=== PATIENT | male | born 1990 | race Caucasian/White ===

== ENCOUNTER 2022-02-02 12:36 | Emergency (ER) | payer MEDICAID, SELFPAY ==
[2022-02-02 12:46] VITALS: BP 133/85; PULSE 68; RESP 16; TEMP 36.5; O2SAT 97; BMI 29.6
--- NOTE | 2022-02-02 13:02 | ED.GENADULT ---
HPI - General Adult General Date Seen: 02/02/22 Chief complaint: Nausea/Vomiting Stated complaint: Vomiting Time Seen by Provider: 02/02/22 12:50 Source: patient History of Present Illness HPI narrative: Patient is a 31-year-old male here with his girlfriend for evaluation of vomiting and diarrhea. He says he became sick on Thursday initially with vomiting, vomited throughout the day yesterday and then today developed diarrhea. He has some sharp, crampy diffuse abdominal pain which is mild. No localized abdominal pain. No bloody stools. He felt chilled last night, no documented fever. He denies any upper respiratory symptoms, sore throat, cough. No urinary symptoms. No ill exposures that he knows of. He has been able to keep some water down, but has not been able to eat anything. He is here today because he continues to have nausea and vomiting which is unusual in terms of duration. Last vomited this morning. He vapes nicotine, denies THC use. Denies regular alcohol use. General health is good, denies any significant medical history, no previous abdominal surgeries. Related Data Home Medications Medication Instructions Recorded Confirmed No Known Home Medications 02/02/22 02/02/22 Allergies Allergy/AdvReac Type Severity Reaction Status Date / Time No Known Drug Allergies Allergy Verified 02/02/22 12:51 Review of Systems Status of ROS: Reports: 10 or more systems reviewed and unremarkable except as noted in History and below [facility] Social History Smoking Status: Current every day smoker Do you use any of these nicotine containing products: Vaping Products Second hand tobacco smoke exposure: No How often do you have a drink containing alcohol: 2-3 times a week AUDIT-C Alcohol total score: 3 Non-prescribed substance use: denies use Exam Narrative: Exam Narrative: Vital signs as noted above. In general, an alert, well-appearing patient. Head: Normocephalic, atraumatic. Eyes: Pupils are equal reactive. Extraocular movements are full. Conjunctivae are normal. ENT: Mucous membranes are moist. Throat is normal. Neck: Supple without lymphadenopathy. Heart: Regular rate and rhythm. No murmur or rub. Lungs: Clear bilaterally. No increased work of breathing, crackles or wheezes. No CVA tenderness. Abdomen: Soft and nontender. No organomegaly. Extremities: Well perfused. No edema. No calf tenderness. Pulses intact. Neurologic: Patient is alert and oriented to person and place. Speech is fluent. Face is symmetric. Moves all extremities equally. Affect: Normal. Skin: Warm and dry. Well perfused. Const: Vital Signs, click to edit/add: Vital Signs - 24 hr 02/02/22 12:46 Temperature 97.7 F Pulse Rate [Right Pulse Oximeter] 68 Respiratory Rate 16 Blood Pressure [Ri ght Upper Arm] 133/85 Pulse Oximetry 97 Oxygen Delivery Me thod Room Air Documenting provider has reviewed patient's vital signs: yes Course Course Hospital Course: Will place an IV, give a L of fluid and some Zofran, check some labs. Discussed that symptoms are likely viral given lack of localizing abdominal pain and lack of significant medical history. However, will await labs to decide if imaging is indicated. At this point I am not overly suspicious of an acute surgical process such as appendicitis, cholecystitis or other significant illness such as pancreatitis, bowel obstruction, colitis, diverticulitis. Labs are overall reassuring[place] [address], but hemoglobin is also fairly elevated at 16.6. I think this may be due to a component of hemoconcentration. He does not have a significant left shift. CRP is normal at less than 0.5. Metabolic panel is unremarkable. BUN and creatinine are normal. Lactate is 1.2. LFTs are unremarkable. Urinalysis shows some ketones but is otherwise negative, and COVID test is negative. He is feeling significantly improved after L of normal saline. He does not feel that he needs more IV fluids, and declines any oral fluids here, he says he feels like he can go home and drink fluids at home, and may even be able to eat something at this point. His abdominal exam remains benign. I think with his labs in abdominal exam that I do not feel compelled to do imaging today. Discussed if he is worsening rather than stable to improving he should return and would consider imaging at that time. Vital Signs Vital signs: Initial Vital Signs Temperature 97.7 F 02/02/22 12:46 Temperature Source Temporal Artery Scan 02/02/22 12:46 Pulse Rate 68 02/02/22 12:46 Respiratory Rate 16 02/02/22 12:46 Blood Pressure 133/85 02/02/22 12:46 Blood Pressure Mean 101 02/02/22 12:46 Blood Pressure Position Sitting 02/02/22 12:46 Pulse Oximetry 97 02/02/22 12:46 Oxygen Delivery Method 02/02/22 12:46 Vital Signs Temperature 97.7 F 02/02/22 12:46 Pulse Rate 68 02/02/22 12:46 Respiratory Rate 16 02/02/22 12:46 Blood Pressure 133/85 02/02/22 12:46 Pulse Oximetry 97 02/02/22 12:46 Oxygen Delivery Method 02/02/22 12:46 Temperature 97.7 F 02/02/22 12:46 Pulse Rate 68 02/02/22 12:46 Respiratory Rate 16 02/02/22 12:46 Blood Pressure 133/85 02/02/22 12:46 Pulse Oximetry 97 02/02/22 12:46 Oxygen Delivery Method 02/02/22 12:46 Medical Decision Making Lab Data Labs: Lab Results 02/02/22 02/02/22 02/02/22 Range/Units 12:05 12:58 13:10 WBC 14.26 H (4.50-11.00) K/uL RBC 5.56 (4.30-5.90) m/uL Hgb 16.6 (13.5-17.5) gm/dL Hct 48.6 (37.0-53.0) % MCV 87 (80-100) fL MCH 30 (26-34) pg MCHC 34 (32-36) gm/dL RDW Coeff of Jose L 12.4 (11.5-15.5) % Plt Count 245 (140-440) K/uL Neut % (Auto) 75.1 H (42.0-72.0) % Lymph % (Auto) 14.0 L (20-44) % Daniels % (Auto) 9.8 (0.0-11.0) % Eos % (Auto) 0.5 (0.0-7.0) % Baso % (Auto) 0.4 (0.0-3.0) % Neut # (Auto) 10.70 H (1.7-7.0) K/uL Lymph # (Auto) 2.00 (0.90-2.90) K/uL Daniels # (Auto) 1.40 H (0.00-0.90) K/UL Eos # (Auto) 0.10 (0.00-0.50) K/uL Baso # (Auto) 0.10 (0.00-0.30) K/uL Abs Immat Gran (auto) 0.03 (0.00-0.30) K/uL Sodium (135-149) mmol/L Potassium (3.6-5.1) mmol/L Chloride (96-114) mmol/L Carbon Dioxide (20-32) mmol/L BUN (5-24) mg/dL Creatinine (0.5-1.5) mg/dL Estimated Creat Clear Estimated GFR ml/min Glucose (60-115) mg/dL Lactate (0.5-1.9) mmol/L Calcium (8.4-10.6) mg/dL Total Bilirubin (0.1-1.5) mg/dL Direct Bilirubin (0.0-0.5) mg/dL AST (12-35) U/L ALT (4-50) U/L Alkaline Phosphatase (40-150) U/L C-Reactive Protein (0.5-1.0) mg/dL Total Protein (6.0-8.3) g/dL Albumin (3.3-5.0) g/dL Lipase (23-300) U/L Urine Color Yellow (Yellow) Urine Appearance Clear (Clear) Urine pH 7.0 (5.0-8.5) Ur Specific [place] 1.020 (1.000-1.030) Urine Protein Negative (Negative) Urine Glucose (UA) Negative (Negative) Urine Ketones Trace A (Negative) Urine Blood Negative (Negative) Urine Nitrite Negative (Negative) Urine Bilirubin Negative (Negative) Urine Urobilinogen 0.2 (0.2-1.0) Ur Leukocyte Esterase Negative (Negative) Urine RBC 0-2 (0-2) Urine WBC 0-2 (0-5) Ur Squamous Epith Cells Not Reportable Urine Bacteria Few A (None) SARS-CoV-2 (PCR) Negative SARS-CoV-2 (Negative) 02/02/22 02/02/22 Range/Units 13:10 13:10 WBC (4.50-11.00) K/uL RBC (4.30-5.90) m/uL Hgb (13.5-17.5) gm/dL Hct (37.0-53.0) % MCV (80-100) fL MCH (26-34) pg MCHC (32-36) gm/dL RDW Coeff of Jose L (11.5-15.5) % Plt Count (140-440) K/uL Neut % (Auto) (42.0-72.0) % Lymph % (Auto) (20-44) % Daniels % (Auto) (0.0-11.0) % Eos % (Auto) (0.0-7.0) % Baso % (Auto) (0.0-3.0) % Neut # (Auto) (1.7-7.0) K/uL Lymph # (Auto) (0.90-2.90) K/uL Daniels # (Auto) (0.00-0.90) K/UL Eos # (Auto) (0.00-0.50) K/uL Baso # (Auto) (0.00-0.30) K/uL Abs Immat Gran (auto) (0.00-0.30) K/uL Sodium 137 (135-149) mmol/L Potassium 4.6 (3.6-5.1) mmol/L Chloride 100 (96-114) mmol/L Carbon Dioxide 28 (20-32) mmol/L BUN 16 (5-24) mg/dL Creatinine 1.0 (0.5-1.5) mg/dL Estimated Creat Clear 105.45 Estimated GFR 104 ml/min Glucose 101 (60-115) mg/dL Lactate 1.2 (0.5-1.9) mmol/L Calcium 9.5 (8.4-10.6) mg/dL Total Bilirubin 0.7 (0.1-1.5) mg/dL Direct Bilirubin 0.0 (0.0-0.5) mg/dL AST 40 H (12-35) U/L ALT 43 (4-50) U/L Alkaline Phosphatase 72 (40-150) U/L C-Reactive Protein < 0.5 L (0.5-1.0) mg/dL Total Protein 7.8 (6.0-8.3) g/dL Albumin 4.9 (3.3-5.0) g/dL Lipase 105 (23-300) U/L Urine Color (Yellow) Urine Appearance (Clear) Urine pH (5.0-8.5) Ur Specific [place] (1.000-1.030) Urine Protein (Negative) Urine Glucose (UA) (Negative) Urine Ketones (Negative) Urine Blood (Negative) Urine Nitrite (Negative) Urine Bilirubin (Negative) Urine Urobilinogen (0.2-1.0) Ur Leukocyte Esterase (Negative) Urine RBC (0-2) Urine WBC (0-5) Ur Squamous Epith Cells Urine Bacteria (None) SARS-CoV-2 (PCR) (Negative) Discharge Plan Discharge Clinical Impression: Gastroenteritis, Dehydration Patient Disposition: Home, Self-Care Condition: Improved Instructions: Gastroenteritis (ED) Additional Instructions: Continue to work on hydration at home, advance diet as able. Zofran if needed for further nausea/vomiting. Return for continued vomiting despite treatment, severe or localized abdominal pain, fever, bloody stools or other worsening. Follow-up with primary care if not improving over the next 1-2 days. Prescriptions: No Action No Known Home Medications Stand Alone Forms: [employer] Info Instructions
[2022-02-02 13:18] LABS: Lactate* 1.2 mmol/L (0.5-1.9)
[2022-02-02 13:20] LABS: Appearance Urine Clear (Clear); Bilirubin Urine Negative (Negative); Blood Urine Negative (Negative); Color Urine Yellow (Yellow); Glucose Urine Negative (Negative); Ketones Urine Trace (Negative); Leukocyte Esterase Urine Negative (Negative); Nitrite Urine Negative (Negative); Protein Urine Negative (Negative); Urobilinogen Urine 0.2 (0.2-1.0)
[2022-02-02 13:21] LABS: Basophils Percent Auto 0.4 % (0.0-3.0); Eosinophils Percent Auto 0.5 % (0.0-7.0); Hematocrit 48.6 % (37.0-53.0); Hemoglobin* 16.6 gm/dL (13.5-17.5); Immature Granulocytes Abs Auto 0.03 K/uL (0.00-0.30); Mean Corpuscular HGB Conc 34 gm/dL (32-36); Mean Corpuscular Hemoglobin 30 pg (26-34); Mean Corpuscular Volume 87 fL (80-100); Monocytes Percent Auto 9.8 % (0.0-11.0); Neutrophils Percent Auto 75.1 % (42.0-72.0); Platelet Count* 245 K/uL (140-440); RDW Coefficient of Variation % 12.4 % (11.5-15.5); Red Blood Count 5.56 m/uL (4.30-5.90); White Blood Count* 14.26 K/uL (4.50-11.00)
[2022-02-02] MEDS: ONDANSETRON 2 MG/ML inj 4 MG IVP (13:21)
[2022-02-02] MEDS: 0.9 % SODIUM CHLORIDE 1000 ml 1,000 ML IV (13:21)
[2022-02-02 13:24] LABS: Slide Review Reflex No
[2022-02-02 13:30] VITALS: BP 126/83; PULSE 61; RESP 14; O2SAT 95
[2022-02-02 13:38] LABS: Bacteria Urine Few; RBC Urine 0-2 (0-2); WBC Urine 0-2 (0-5)
[2022-02-02 13:43] LABS: Chloride* 100 mmol/L (96-114)
[2022-02-02 13:44] LABS: Albumin* 4.9 g/dL (3.3-5.0); Sodium* 137 mmol/L (135-149)
[2022-02-02 13:45] LABS: Potassium* 4.6 mmol/L (3.6-5.1)
[2022-02-02 13:47] LABS: Alkaline Phosphatase* 72 U/L (40-150); Aspartate Amino Transferase* 40 U/L (12-35); Bilirubin Total* 0.7 mg/dL (0.1-1.5); Blood Urea Nitrogen* 16 mg/dL (5-24); Carbon Dioxide* 28 mmol/L (20-32); Est. Creatinine Clearance* 105.45; Estimated Glomerular Filt Rate 104 ml/min; Lipase* 105 U/L (23-300); Total Protein* 7.8 g/dL (6.0-8.3)
[2022-02-02 13:48] LABS: Alanine Aminotransferase* 43 U/L (4-50); Calcium* 9.5 mg/dL (8.4-10.6); Glucose* 101 mg/dL (60-115)
[2022-02-02 13:55] LABS: C Reactive Protein* < 0.5 mg/dL (0.5-1.0)
[2022-02-02 14:00] VITALS: BP 121/84; PULSE 48; RESP 14; O2SAT 97
[2022-02-02 14:15] LABS: SARS PCR* Negative SARS-CoV-2 (Negative)
== END 2022-02-02 14:56 | disposition home or self-care (01) ==
PROVIDERS: Emergency Provider Emergency Medicine
DX: R11.2 Nausea with vomiting, unspecified (principal); E86.0 Dehydration
CPT/HCPCS: 36415; 80048; 80076; 81001; 83605; 83690; 85025; 86140; 87086; 87635; 96374; 99283; 99284; J2405; J7030

== ENCOUNTER 2022-03-03 13:49 | Emergency (ER) | payer OTHER, MEDICAID, SELFPAY ==
[2022-03-03 13:55] VITALS: BP 145/78; PULSE 89; RESP 18; TEMP 36.8; O2SAT 97; BMI 30.4
--- NOTE | 2022-03-03 14:10 | XR_ITS ---
Final Report Patient: DEANDRE ESQUIVLE Facility:?[facility] Patient ID:?[id number] Site Patient ID:?[id number]. Site :?[id number] Study:?XRay Knee Right 3 views-03/03/2022 2:29:17 PM Ordering Physician:Vincent Sainz Final Report: INDICATION: Knee injury from fall from ladder TECHNIQUE: Knee radiograph 3 views right COMPARISON: None FINDINGS: Bone: No acute fractures or aggressive bone lesions are identified. Joint: The medial, lateral, and patellofemoral compartments are unremarkable. No significant knee effusion is seen. Soft tissue: Evaluation is limited by overlying bandage. No radiopaque foreign bodies are seen. IMPRESSION: 1. No acute osseous injuries or abnormalities are noted. Dictated by: Orlin Lopez MD @ 03/03/2022 14:32:03 (Electronic Signature)
--- NOTE | 2022-03-03 14:12 | ED.FALL ---
HPI - Fall General Chief Complaint: Fall/Minor Trauma Stated Complaint: Fell two stories off ladder cut right knee open Time Seen by Provider: 03/03/22 14:02 History of Present Illness HPI Narrative: This 32-year-old male walks into the emergency department reporting a fall from a ladder that occurred just prior to arrival. He states that he was up a couple stories high on a tall ladder when he fell down. He states that he hit the ladder on the way down and landed on his feet. He does not describe any injury except for pain in his right knee. He does have a laceration above the right patella. He does not report any other injury. He did not hit his head or lose consciousness. He is ambulating rather normally except for a mild limp. He does not have any neck pain, back pain, chest pain or abdominal pain. Related Data Previous Rx's Medication Instructions Recorded ketorolac 10 mg tablet 10 mg PO Q8H 5 days #15 tabs 03/03/22 Allergies Allergy/AdvReac Type Severity Reaction Status Date / Time No Known Drug Allergies Allergy Verified 03/03/22 13:59 Review of Systems Status of ROS: Reports: 10 or more systems reviewed and unremarkable except as noted in History and below Narrative: Constitutional: No fevers, no weight gain or loss. Eyes: No discharge. No vision changes. HENT: No congestion, no sore throat, no ear pain. Cardiovascular: No chest pain, no palpitations. Respiratory: No shortness of breath, no wheezes, no cough. Gastrointestinal: No abdominal pain, no vomiting, no diarrhea. Genitourinary: No dysuria, no hematuria. Musculoskeletal: Normal range of motion. Right knee pain with laceration as described above. Skin: No rashes, no pruritis. Neurological: No dizziness, weakness, sensory change, speech change. Endo/Heme/Allergies: No bruising or bleeding. No polydipsia. Pysch: no suicidality, no anxiety, no insomnia. All other systems reviewed and are negative. [facility] Social History Smoking Status: Former smoker Do you use any of these nicotine containing products: Vaping Products Second hand tobacco smoke exposure: No How often do you have a drink containing alcohol: 2-3 times a week How many standard drinks containing alcohol do you have on a typical day: 1 or 2 How often do you have six or more drinks on one occasion: Never AUDIT-C Alcohol total score: 3 Non-prescribed substance use: denies use service: No Exam Narrative: Exam Narrative: Primary Survey: Vital Signs are within normal limits. Airway: Open. Breathing: Easy. Circulation: no obvious bleeding; normal capillary refill. Disability: GCS is 15. Normal pupillary response and motor movements. Secondary Survey: Head: Normocephalic Neck: No midline tenderness. ROM intact. Chest: Non tender. No external signs of trauma. Abdomen: Non tender. No rebound tenderness. Normal bowel sounds. Pelvis/Genitals: No tenderness to A/P and lateral stress. Extremities: Abrasion and laceration above the right knee on the anterior portion of the distal femur. Back: No midline tenderness. Primary and Secondary surveys are completed. The patient's GCS is 15. Const: Vital Signs, click to edit/add: Vital Signs - 24 hr 03/03/22 13:55 Temperature 98.3 F Pulse Rate [Right Pulse Oximeter] 89 Respiratory Rate 18 Blood Pressure [Ri ght Upper Arm] 145/78 H Pulse Oximetry 97 Oxygen Delivery Me thod Room Air Course Vital Signs Vital signs: Initial Vital Signs Temperature 98.3 F 03/03/22 13:55 Temperature Source Temporal Artery Scan 03/03/22 13:55 Pulse Rate 89 03/03/22 13:55 Respiratory Rate 18 03/03/22 13:55 Blood Pressure 145/78 H 03/03/22 13:55 Blood Pressure Mean 100 03/03/22 13:55 Blood Pressure Position Sitting 03/03/22 13:55 Pulse Oximetry 97 03/03/22 13:55 Oxygen Delivery Method 03/03/22 13:55 Vital Signs Temperature 98.3 F 03/03/22 13:55 Pulse Rate 89 03/03/22 13:55 Respiratory Rate 18 03/03/22 13:55 Blood Pressure 145/78 H 03/03/22 13:55 Pulse Oximetry 97 03/03/22 13:55 Oxygen Delivery Method 03/03/22 13:55 Temperature 98.3 F 03/03/22 13:55 Pulse Rate 89 03/03/22 13:55 Respiratory Rate 18 03/03/22 13:55 Blood Pressure 145/78 H 03/03/22 13:55 Pulse Oximetry 97 03/03/22 13:55 Oxygen Delivery Method 03/03/22 13:55 MDM - Fall MDM Narrative Medical decision making narrative: This patient comes in for evaluation of a fall from a significant height. He states that he was up on a ladder a couple stories up when he came off the ladder and hit the ladder on the way down. He landed on his feet. The mechanism of injury is trigger for trauma team activation however his exam is actually quite reassuring. He states that he was able to land on his feet and role out of the fall. He has an abrasion above his right knee and a smaller 1 above the left knee. This is where he hit the ladder. His exam is otherwise normal. I did discuss with him concern about the mechanism of injury given the height from which she fell however his exam is reassuring. Consideration was given toward imaging of his head, spine, chest, and abdomen. However his exam in these areas is completely normal. He is not having any pain or discomfort. He did not injure these areas despite the height from which he fell. An x-ray of the right knee is acquired which returns with no acute findings. He has an abrasion above the right knee that was cleansed. It was evaluated to its base and noted that there was no full-thickness laceration involved. I did repair part of the wound with Dermabond but there was no need to approximate any wound edges. A nonstick bandage was then applied. The patient did receive an intramuscular injection of Toradol. He was uncertain of his tetanus status and an attempt was made to research this. It was found that his tetanus was updated 5 years ago so he is current. The patient is okay to return home. He is ambulatory with a slight limp. He received a prescription for Toradol. ECG Data Attestation: I personally reviewed and interpreted this ECG as follows: Interpretation: Normal sinus rhythm, rate is 59 beats per minute. There are no specific ST or T-wave abnormalities. Discharge Plan Discharge Clinical Impression: Multiple leg contusions, Fall Patient Disposition: Home, Self-Care Condition: Stable Additional Instructions: Take medication as needed and indicated. Increase activity as tolerated. Follow up with MD or return if worsening. Prescriptions: New ketorolac 10 mg tablet 10 mg PO Q8H 5 Days Qty: 15 0RF Follow Up/Referrals: Provider,Not a Local [Primary Care Provider] - Stand Alone Forms: [employer] Info Instructions
[2022-03-03 14:45] VITALS: BP 114/75; PULSE 59; RESP 12; O2SAT 96
--- NOTE | 2022-03-03 14:47 | ED.NURSE ---
dr reza in to see and wound was cleaned with génesis jenkins. this is an abrasion. r knee.
[2022-03-03 15:00] VITALS: BP 111/65; PULSE 57; RESP 14; O2SAT 96
--- NOTE | 2022-03-03 15:09 | ED.NURSE ---
last tetanus 11/11/2016
[2022-03-03] MEDS: KETOROLAC 30 MG/ML inj IM (15:24)
== END 2022-03-03 15:37 | disposition home or self-care (01) ==
PROVIDERS: Emergency Provider Emergency Medicine Emergency Medical Services
DX: S80.02XA Contusion of left knee, initial encounter (principal); S80.01XA Contusion of right knee, initial encounter; W11.XXXA Fall on and from ladder, initial encounter; Y93.H3 Activity, building and construction; Y92.9 Unspecified place or not applicable; Y99.0 Civilian activity done for income or pay
CPT/HCPCS: 73562; 93005; 96372; 99284; 99291; G0390; J1885

== ENCOUNTER 2022-07-18 17:43 | Emergency (ER) | payer MEDICAID, SELFPAY ==
[2022-07-18 17:47] VITALS: BP 131/81; PULSE 84; RESP 16; TEMP 36.9; O2SAT 94; BMI 30.4
--- NOTE | 2022-07-18 17:58 | ED.FEVER ---
HPI - Fever General Time Seen by Provider: 17:58 Date Seen: 07/18/22 Chief Complaint: Fever Stated Complaint: Sore Throat Fever Time Seen by Provider: 07/18/22 17:58 Source: patient and RN notes reviewed Mode of arrival: ambulatory Limitations: no limitations History of Present Illness HPI Narrative: Patient is a very pleasant 32-year-old gentleman previously healthy with history of vaping who comes to the emergency room for evaluation of new fever today. Patient noted the onset of a fever up to 101, headache, sore throat, mild congestion and a slight cough earlier today. Patient notes that he has had an exposure to strep at work. His employer asked him to come in to be evaluated. He has no vomiting but did have some slight nausea earlier today. He did take Excedrin which has helped somewhat with his headache. He denies a history of underlying lung infection, emphysema, asthma. He agrees that he is slightly short of breath. He is able to drink fluids without difficulty. Related Data Previous Rx's Medication Instructions Recorded nirmatrelvir 300 mg (150 mg See Rx Instructions PO .COMPLEX 07/18/22 x2)-ritonavir 100 mg tablet,dose #30 ea pack(EUA) (Paxlovid) Allergies Allergy/AdvReac Type Severity Reaction Status Date / Time No Known Drug Allergies Allergy Verified 03/03/22 13:59 Review of Systems Narrative Patient denies ear pain, visual changes, chest pain, abdominal pain, unusual rash. [facility] Social History Smoking Status: Former smoker Do you use any of these nicotine containing products: Vaping Products Second hand tobacco smoke exposure: No How often do you have a drink containing alcohol: 2-3 times a week How many standard drinks containing alcohol do you have on a typical day: 1 or 2 How often do you have six or more drinks on one occasion: Never AUDIT-C Alcohol total score: 3 Non-prescribed substance use: denies use service: No Exam Narrative Exam Narrative: Patient is alert and oriented. Not in any acute distress. Mentating normally. Eyes are clear without injection or drainage. Head is atraumatic normocephalic Oral cavity with moist mucous membranes. Patient has a somewhat enlarged uvula. However does not appear edematous and I believe this is likely chronic. Oral cavity without exudate or erythema. Neck is supple without lymphadenopathy. Heart with regular rate and rhythm and lungs are clear bilaterally. Abdomen soft. Moving all extremities. Const Vital Signs, click to edit/add: Vital Signs - 24 hr 07/18/22 17:47 Temperature 98.5 F Pulse Rate [Left Pulse Oximeter] 84 Respiratory Rate 16 Blood Pressure [Right Upper Arm] 131/81 Pulse Oximetry 94 Oxygen Delivery Method Room Air Course Course Hospital Course: Patient noted to have onset of fever with mild respiratory symptoms and a sore throat today. Differential diagnosis includes but is not limited to COVID, influenza, RSV, strep, other viral illness. Will obtain CT COVID/influenza/RSV and strep swabs. Vital Signs Vital signs: Initial Vital Signs Temperature 98.5 F 07/18/22 17:47 Temperature Source Temporal Artery Scan 07/18/22 17:47 Pulse Rate 84 07/18/22 17:47 Pulse Rhythm Regular 07/18/22 17:47 Respiratory Rate 16 07/18/22 17:47 Blood Pressure 131/81 07/18/22 17:47 Blood Pressure Mean 97 07/18/22 17:47 Pulse Oximetry 94 07/18/22 17:47 Oxygen Delivery Method Room Air 07/18/22 17:47 Vital Signs Temperature 98.5 F 07/18/22 17:47 Pulse Rate 84 07/18/22 17:47 Respiratory Rate 16 07/18/22 17:47 Blood Pressure 131/81 07/18/22 17:47 Pulse Oximetry 94 07/18/22 17:47 Oxygen Delivery Method Room Air 07/18/22 17:47 Temperature 98.5 F 07/18/22 17:47 Pulse Rate 84 07/18/22 17:47 Respiratory Rate 16 07/18/22 17:47 Blood Pressure 131/81 07/18/22 17:47 Pulse Oximetry 94 07/18/22 17:47 Oxygen Delivery Method Room Air 07/18/22 17:47 MDM - Fever MDM Narrative Medical decision making narrative: 1. COVID-at this time patient has reassuring oxygen levels and exam. He has onset of symptoms today so tomorrow will be day 1 of his illness. I recommended that he be off work up to and including July 23. Thereafter he may return to work but with masking an additional 5 days if he is without fever and his symptoms are improved. Patient has had previous immunizations and has had COVID once before. I did offer Paxlovid giving vaping history and patient would like to do this. He has no history of kidney problems in the past. I do not feel that we need to check a creatinine today. He is not dehydrated. 2. Disposition- home at this time. Patient's is . I have asked her to check with her OB regarding any need for treatment. She has no symptoms at this time but certainly has had significant exposure. Suggest sleeping on side or on stomach to help lung expansion with COVID. Return to the emergency room for worsening symptoms. Medical Records Attestation: I reviewed the patient's medical records. Medical records narrative: I reviewed previous records. Lab Data Attestation: I reviewed the patient's lab results. Lab results narrative: I reviewed labs. Labs: Lab Results 07/18/22 Range/Units 17:30 SARS-CoV-2 (PCR) POSITIVE SARS-CoV-2 A (Negative) Influenza Type A (PCR) Negative PCR FLU A (Negative) Influenza Type B (PCR) Negative PCR FLU B (Negative) RSV (PCR) Negative PCR RSV (Negative) Group A Strep DNA NOT DETECTED (Not Detectd) Discharge Plan Discharge Clinical Impression: COVID Patient Disposition: Home, Self-Care Condition: Unchanged Additional Instructions: Push fluids and stay well hydrated. Alternate ibuprofen and Tylenol every 4 hours as needed for fever. Start 5 day dosing of Paxlovid tonight. This was sent to your pharmacy. Try to sleep on your side or stomach. Sleeping on your back decreases your lungs ability to actively expand. Return to the emergency room for worsening symptoms. Work note with you. Prescriptions: New Paxlovid (EUA) 300 mg (150 mg x 2)-100 mg tablets,dose pack See Rx Instructions .ROUTE .COMPLEX Qty: 30 0RF Rx Instructions: take TWO 150 mg tablets of nirmatrelvir with ONE 100 mg tablet of ritonavir twice daily for 5 days Follow Up/Referrals: Provider,Not a Local [Primary Care Provider] - Stand Alone Forms: [employer] Info Instructions
[2022-07-18 18:38] LABS: Strep A DNA Probe* NOT DETECTED (Not Detectd)
[2022-07-18 18:58] LABS: PCR FLU A Negative PCR FLU A (Negative); PCR FLU B Negative PCR FLU B (Negative); PCR RSV Negative PCR RSV (Negative); SARS PCR* POSITIVE SARS-CoV-2 (Negative)
== END 2022-07-18 19:15 | disposition home or self-care (01) ==
PROVIDERS: Emergency Provider Family Medicine
DX: U07.1 COVID-19 (principal)
CPT/HCPCS: 87502; 87634; 87635; 87651; 99283

== ENCOUNTER 2023-09-02 18:38 | Emergency (ER) | payer OTHER, SELFPAY ==
[2023-09-02 18:49] VITALS: BP 148/90; PULSE 96; RESP 18; TEMP 36.6; O2SAT 100; BMI 32.7
--- NOTE | 2023-09-02 19:14 | ED.GENADULT ---
HPI - General Adult General Chief complaint: Urogenital Problems, Male Stated complaint: Wound on genitals Time Seen by Provider: 09/02/23 18:42 History of Present Illness HPI narrative: This 33-year-old male comes in reporting abrasion on the end of his penis that is painful. He works washing with a wet washer machine and throughout the course of his regular daily shifts he is in wet clothes and thinks that this is causing abrasion to the glans of his penis. He does not report any fevers and he is urinating normally. He just finished taking doxycycline for a different reason. He is otherwise in good health. Related Data Previous Rx's Medication Instructions Recorded ketorolac 10 mg tablet 10 mg PO Q8H 5 days #15 tabs 09/02/23 Allergies Allergy/AdvReac Type Severity Reaction Status Date / Time No Known Drug Allergies Allergy Verified 03/03/22 13:59 Review of Systems Status of ROS: Reports: 10 or more systems reviewed and unremarkable except as noted in History and below Narrative: Constitutional: No fevers, no weight gain or loss. Eyes: No discharge. No vision changes. HENT: No congestion, no sore throat, no ear pain. Cardiovascular: No chest pain, no palpitations. Respiratory: No shortness of breath, no wheezes, no cough. Gastrointestinal: No abdominal pain, no vomiting, no diarrhea. Genitourinary: No dysuria, no hematuria. Superficial Abrasion on the dorsal aspect of the glans of the penis. Musculoskeletal: Normal range of motion. Skin: No rashes, no pruritis. Neurological: No dizziness, weakness, sensory change, speech change. Endo/Heme/Allergies: No bruising or bleeding. No polydipsia. Pysch: no suicidality, no anxiety, no insomnia. All other systems reviewed and are negative. [facility] Social History Smoking Status: Former smoker Do you use any of these nicotine containing products: Vaping Products Second hand tobacco smoke exposure: No How often do you have a drink containing alcohol: 2-3 times a week How many standard drinks containing alcohol do you have on a typical day: 1 or 2 How often do you have six or more drinks on one occasion: Never AUDIT-C Alcohol total score: 3 Non-prescribed substance use: denies use service: No Exam Narrative: Exam Narrative: Constitutional: Well-developed, well-nourished, no acute distress. HEENT: Normocephalic, atraumatic. Neck: Normal range of motion. Nontender. Supple. Heart: Intact distal pulses. Lungs: No chest discomfort. No wheezes, rhonchi, or rales. Abdomen: Nontender. Genital: The dorsal aspect of the glans of the penis has erythema typical of an abrasion. Back: Normal range of motion. Extremities: Normal range of motion. No injury. Skin: Intact. No rash. Warm. No erythema or pallor. Neurologic: No altered sensation. No weakness. Alert and oriented. Psychiatric: No suicidality. No anxiety or depression. No insomnia. Nursing notes and vitals signs are reviewed. Const: Vital Signs, click to edit/add: Vital Signs - 24 hr 09/02/23 18:49 Temperature 97.8 F Pulse Rate [Pulse Oximeter] 96 Respiratory Rate 18 Blood Pressure [Ri ght Upper Arm] 148/90 H Pulse Oximetry 100 Oxygen Delivery Me thod Room Air Course Vital Signs Vital signs: Initial Vital Signs Temperature 97.8 F 09/02/23 18:49 Temperature Source Temporal Artery Scan 09/02/23 18:49 Pulse Rate 96 09/02/23 18:49 Pulse Rhythm Regular 09/02/23 18:49 Respiratory Rate 18 09/02/23 18:49 Blood Pressure 148/90 H 09/02/23 18:49 Blood Pressure Mean 109 H 09/02/23 18:49 Blood Pressure Position Sitting 09/02/23 18:49 Pulse Oximetry 100 09/02/23 18:49 Oxygen Delivery Method Room Air 09/02/23 18:49 Vital Signs Temperature 97.8 F 09/02/23 18:49 Pulse Rate 96 09/02/23 18:49 Respiratory Rate 18 09/02/23 18:49 Blood Pressure 148/90 H 09/02/23 18:49 Pulse Oximetry 100 09/02/23 18:49 Oxygen Delivery Method Room Air 09/02/23 18:49 Temperature 97.8 F 09/02/23 18:49 Pulse Rate 96 09/02/23 18:49 Respiratory Rate 18 09/02/23 18:49 Blood Pressure 148/90 H 09/02/23 18:49 Pulse Oximetry 100 09/02/23 18:49 Oxygen Delivery Method Room Air 09/02/23 18:49 Medical Decision Making MDM Narrative Medical decision making narrative: This patient is working in a job where he is in wet clothes throughout the day because of using pressure washers. He states that they are also using some chlorine in the water for its cleansing benefit. He likely has an abrasion on the tip of his penis because of chafing on wet clothing. The chlorine may also be causing some irritation. Patient states that he has been using an antibiotic ointment. There does not appear to be any need for lab her imaging studies today. I advised him to keep is closed dry if possible. Perhaps he could use rain pants and if needed could cut the lower half off to make them into shorts. I also recommended using some kind of barrier cream directly on his penis such as Desitin or zinc oxide cream. I did provide a prescription for Toradol. Discharge Plan Discharge Clinical Impression: Abrasion of penis Patient Disposition: Home, Self-Care Condition: Stable Additional Instructions: Keep wound clean and dry as best as possible. Use a barrier cream such as Desitin also as needed. Take medication as needed and directed. Follow up with MD return if worsening. Prescriptions: New ketorolac 10 mg tablet 10 mg PO Q8H 5 Days Qty: 15 0RF Follow Up/Referrals: Provider,Not a Local [Primary Care Provider] - Stand Alone Forms: [facility] Info Instructions
== END 2023-09-02 19:30 | disposition home or self-care (01) ==
PROVIDERS: Emergency Provider Emergency Medicine Emergency Medical Services
DX: S30.812A Abrasion of penis, initial encounter (principal)
CPT/HCPCS: 99283; 99284